=== PATIENT | male | born 2000 | race Caucasian/White ===

== ENCOUNTER 2021-02-09 05:35 | Emergency (ER) | payer OTHER ==
[~2021-02-09 05:35] MED LIST: IBUPROFEN800 MG PO; KEFLEX250 MG PO; KEFLEX500 MG PO; NAPROXEN500 MG PO; TESSALON PERLE100 MG PO
[2021-02-09 06:27] LABS: BILIRUBIN NEGATIVE (NEGATIVE); BLOOD TRACE-LYSED Ery/uL (NEGATIVE); CLARITY CLEAR (CLEAR); COLOR YELLOW (YELLOW); GLUCOSE (U) NORMAL (NORMAL); LEUKOCYTES NEGATIVE Leu/uL (NEGATIVE); NITRITE NEGATIVE (NEGATIVE); PROTEIN NEGATIVE (NEGATIVE); SPECIFIC GRAVITY <=1.005 (1.001-1.030); UROBILINOGEN 0.2 mg/dL (0.2-1.0)
[2021-02-09 06:31] LABS: AMPHETAMINES NEGATIVE (NEGATIVE); BARBITURATES NEGATIVE (NEGATIVE); ECSTASY (MDMA) NEGATIVE (NEGATIVE); MARIJUANA (THC) NEGATIVE (NEGATIVE); METHADONE NEGATIVE (NEGATIVE); OPIATES NEGATIVE (NEGATIVE); OXYCODONE NEGATIVE (NEGATIVE)
[2021-02-09 06:36] LABS: SQUAMOUS EPITHELIAL CELLS RARE
[2021-02-09 06:46] LABS: BASOPHIL 0.5 % (0-2); HCT 38.9 % (42.0-52.0); HGB 13.5 g/dl (13.2-18.0); LYMPHOCYTE 29.7 % (15-48); MCH 29.6 pg (25.0-31.0); MCHC 34.7 g/dL (32.0-36.0); MCV 85.3 fL (78.0-100.0); MONOCYTE 7.2 % (0-12); MPV 8.9 fL (6.0-9.5); NEUTROPHIL 59.3 % (41-80); NRBC 0; PLT 298 K/uL (150-400); RBC 4.56 M/uL (4.70-6.00); WBC 7.9 K/uL (4.0-10.5)
[2021-02-09 07:02] LABS: ALBUMIN 3.9 g/dL (3.4-5.0); BILIRUBIN - TOTAL 0.3 mg/dL (0.2-1.0); BUN/CREAT RATIO (CALC) 14.1 RATIO; CREATININE 0.71 mg/dL (0.67-1.17); GLOBULIN (CALCULATION) 3.4 g/dL; POTASSIUM 3.1 mmol/L (3.5-5.1); TOTAL PROTEIN 7.3 g/dL (6.4-8.2)
[2021-02-09] MEDS ORDERED: ROBAXIN750 MG PO (09:23)
[2021-02-09] MEDS ORDERED: NAPROXEN500 MG PO (09:23)
== END 2021-02-09 07:44 | disposition home or self-care (01) ==
LOC: FER 05:35
PROVIDERS: Emergency Medicine
DX: S80.02XA Contusion of left knee, initial encounter (principal); S40.212A Abrasion of left shoulder, initial encounter; S40.211A Abrasion of right shoulder, initial encounter; V49.40XA Driver injured in collision with unspecified motor vehicles in traffic accident, initial encounter; Y92.410 Unspecified street and highway as the place of occurrence of the external cause
CPT/HCPCS: 36415; 70450; 71045; 72125; 73030; 73560; 80053; 80305; 81001; 83690; 85025; G0480

== ENCOUNTER 2021-08-14 19:58 | Emergency (ER) | payer OTHER ==
[~2021-08-14 19:58] MED LIST changes: +ROBAXIN750 MG PO
[2021-08-14 20:36] LABS: BASOPHIL 0.2 % (0-2); EOSINOPHIL 1.2 % (0-5); HCT 39.1 % (42.0-52.0); HGB 13.8 g/dl (13.2-18.0); LYMPHOCYTE 18.6 % (15-48); MCH 30.5 pg (25.0-31.0); MCHC 35.3 g/dL (32.0-36.0); MCV 86.5 fL (78.0-100.0); MONOCYTE 6.9 % (0-12); MPV 8.9 fL (6.0-9.5); NEUTROPHIL 72.6 % (41-80); NRBC 0; PLT 255 K/uL (150-400); RBC 4.52 M/uL (4.70-6.00); RDW 12.6 % (11.5-14.0); WBC 15.7 K/uL (4.0-10.5)
[2021-08-14 20:55] LABS: BUN/CREAT RATIO (CALC) 21.5 RATIO; CREATININE 0.79 mg/dL (0.67-1.17); POTASSIUM 2.7 mmol/L (3.5-5.1)
[2021-08-14] MEDS ORDERED: PREDNISONE 20MG20 MG PO (23:36)
[2021-08-14] MEDS ORDERED: BENADRYL25 MG PO (23:36)
== END 2021-08-15 00:04 | disposition home or self-care (01) ==
LOC: FER 19:58
PROVIDERS: Nurse Practitioner Family
DX: T78.1XXA Other adverse food reactions, not elsewhere classified, initial encounter (principal); I47.2 Ventricular tachycardia; E87.6 Hypokalemia
CPT/HCPCS: 36415; 36600; 71275; 80048; 82550; 82803; 83880; 84484; 85025; 85379; 93005; J1200; J2060; J2405; J2930; J7030; Q9967